=== PATIENT | male | born 1995 | race Asian ===

== ENCOUNTER 2021-07-19 15:41 | Emergency (ER) | payer BC ==
--- NOTE | 2021-07-19 16:12 | ED Physician Documentation ---
History of Present Illness - Stated complaint Stated Complaint: RIGHT FOOT INJURY - Chief complaint Chief Complaint: Trauma Ext - Additonal information Additional information: 25-year-old male presents emergency department for evaluation of acute right foot pain that occurred yesterday when he accidentally kicked heavy weights while at the gym. He did not initially think anything of the injury but noted this morning when he got off of work after walking all evening that he had bruising along the first and second MCP joints of the right foot. No history of previous injury. Review of Systems Constitutional: reports: Reviewed and negative Nose: reports: Reviewed and negative Throat: reports: Reviewed and negative Cardiac: reports: Reviewed and negative Respiratory: reports: Reviewed and negative GI: reports: Reviewed and negative : reports: Reviewed and negative Musculoskeletal: reports: Extremity pain (Right foot) PD PAST MEDICAL HISTORY - Present Medications Home Medications: Ambulatory Orders Medication Instructions Recorded Confirmed Finasteride [Propecia] 1 mg PO DAILY 07/19/21 07/19/21 - Allergies Allergies/Adverse Reactions: Allergies Allergy/AdvReac Type Severity Reaction Status Date / Time amoxicillin Allergy Unknown Verified 07/19/21 15:53 PD ED PE EXPANDED - General General: Alert, No acute distress, Well developed/nourished - Extremities Extremities: Right foot (Swelling ecchymosis at the first and second MCP joints of the right foot. Minimal tenderness elicited. Normal gait.) Results - Vitals Vitals: Vital Signs - 24 hr 07/19/21 15:50 Temperature 36.6 C Heart Rate 64 Respiratory 16 Rate Blood Pressure 149/90 H O2 Saturation 99 Oxygen O2 Source Room air PD MEDICAL DECISION MAKING - ED course Complexity details: reviewed results, re-evaluated patient, d/w patient ED course: 25-year-old male presents emergency department for acute right foot pain after accidentally striking his foot on some weights while at the gym. X-ray is without acute findings. His exam is relatively benign with a normal gait and very minimal tenderness elicited over the distal MCP joints in the area of bruising. I suspect right now he likely has a contusion. Discussed that if symptoms not markedly better in 7 to 10 days to return for repeat imaging. Departure - Departure Disposition: 01 Home, Self Care Clinical Impression: Contusion of right foot Qualifiers: Encounter type: initial encounter Qualified Code(s): S90.31XA - Contusion of right foot, initial encounter Condition: Stable Record reviewed to determine appropriate education?: Yes Instructions: ED Contusion Lower Extr Ch Comments: You are seen today in the ER for foot pain and bruising after accidentally striking her foot against some weights. The x-ray of your foot does not show any obvious broken bones. As we discussed at the bedside you are walking fairly well with only minimal tenderness when we press over the area of bruising. I suspect most likely that you have a contusion or bruising right now. This should resolve over the next week. However in some cases we can miss very subtle fractures on the first presentation to the ER. Therefore if after 7 to 10 days you are still having persistent pain then please return for a repeat x- ray. In the meantime I do recommend Tylenol and ibuprofen for any discomfort. Icing the foot may also be helpful.
--- NOTE | 2021-07-19 16:58 | XRAY Report ---
PROCEDURE: Foot 3 View RT, x-ray INDICATIONS: pain TECHNIQUE: 3 views of the foot were acquired. COMPARISON: None FINDINGS: Bones: No fractures or dislocations. No suspicious bony lesions. Soft tissues: No tibiotalar joint effusion. Achilles tendon appears normal. Fourth toe soft tissue swelling IMPRESSION: Soft tissue swelling without fracture or foreign body Reviewed by: Lee Montalvo MD on 07/19/2021 3:56 PM [facility] Approved by: Lee Montalvo MD on 07/19/2021 3:56 PM [facility] Station ID: [id number]
[2021-07-19 17:09] VITALS: BP 138/79
== END 2021-07-19 17:09 | disposition home or self-care (01) ==
LOC: EDSEX → ED 15:41
DX: S90.31XA Contusion of right foot, initial encounter (principal); W21.89XA Striking against or struck by other sports equipment, initial encounter; Y92.39 Other specified sports and athletic area as the place of occurrence of the external cause
CPT/HCPCS: 99282; 99283